=== PATIENT | male | born 1960 | race Asian ===

== ENCOUNTER 2020-02-08 21:41 | Emergency (ER) | payer SELFPAY ==
[~2020-02-08] VITALS: Ht 172.7 cm; Wt 90.7 kg
[2020-02-08 21:54] VITALS: BP 149/83
[2020-02-08 22:22] LABS: Basophils # (auto) 0 10 ^3/uL (0-0.2); Basophils % (auto) 0.6 % (0.0-2.0); Eosinophils # (auto) 0 10 ^3/uL (0-0.8); Eosinophils % (auto) 0.4 % (0.0-7.0); Hematocrit 47.1 % (41.0-53.0); Hemoglobin 16.6 g/dL (13.5-17.5); Lymphocytes # (auto) 1.3 10 ^3/uL (0.4-5.4); Lymphocytes % (auto) 29.9 % (10.0-50.0); Mean Corpuscular Hemoglobin 33.4 pg (28.0-32.0); Mean Corpuscular Hgb Conc. 35.2 g/dL (32.0-36.0); Mean Corpuscular Volume 94.9 fL (80.0-100.0); Monocytes # (auto) 0.7 10 ^3/uL (0-1.3); Monocytes % (auto) 16.1 % (0.0-12.0); Neutrophils # (auto) 2.4 10 ^3/uL (1.6-8.6); Nucleated Red Blood Cells % 0.1 %; Platelet Count (auto) 125 10^3/uL (140-450); Red Blood Cells 4.96 10^6/uL (4.5-5.90); White Blood Cell 4.5 10^3/uL (4.4-10.8)
[2020-02-08 23:07] LABS: Albumin 3.9 g/dL (3.4-5.0); BUN/Creatinine Ratio 13.9; Calcium 8.9 mg/dL (8.5-10.1); Potassium 4.3 mmol/L (3.5-5.1)
[2020-02-08 23:10] LABS: Bilirubin, Total 0.5 mg/dL (0.2-1.0); Total Protein 7.8 g/dL (6.4-8.2)
== END 2020-02-08 22:33 | disposition home or self-care (01) ==
LOC: EEVIPCON 21:44 → ER 21:44
DX: U07.1 COVID-19 (principal); J18.9 Pneumonia, unspecified organism
CPT/HCPCS: 36415; 71045; 80053; 83605; 85025

== ENCOUNTER 2020-02-10 09:34 | Emergency (ER) | payer BC, OTHER ==
[~2020-02-10] VITALS: Ht 172.7 cm; Wt 90.7 kg
[2020-02-10] MEDS ORDERED: cefTRIAXone SOD 1,000 MG VL IM ONE (12:00)
[2020-02-10 12:55] LABS: Basophils # (auto) 0 10 ^3/uL (0-0.2); Basophils % (auto) 0.3 % (0.0-2.0); Eosinophils # (auto) 0 10 ^3/uL (0-0.8); Hematocrit 48.4 % (41.0-53.0); Hemoglobin 16.6 g/dL (13.5-17.5); Lymphocytes # (auto) 1.5 10 ^3/uL (0.4-5.4); Lymphocytes % (auto) 25.6 % (10.0-50.0); Mean Corpuscular Hemoglobin 32.8 pg (28.0-32.0); Mean Corpuscular Hgb Conc. 34.2 g/dL (32.0-36.0); Mean Corpuscular Volume 95.8 fL (80.0-100.0); Monocytes # (auto) 0.5 10 ^3/uL (0-1.3); Monocytes % (auto) 8.8 % (0.0-12.0); Neutrophils # (auto) 3.8 10 ^3/uL (1.6-8.6); Neutrophils % (auto) 65.3 % (37.0-80.0); Nucleated Red Blood Cells % 0.1 %; Platelet Count (auto) 153 10^3/uL (140-450); Red Blood Cells 5.05 10^6/uL (4.5-5.90); Red Cell Distribution Width 12.7 % (11.8-14.3); White Blood Cell 5.9 10^3/uL (4.4-10.8)
[2020-02-10 13:39] LABS: Albumin 3.6 g/dL (3.4-5.0); Calcium 9.1 mg/dL (8.5-10.1)
[2020-02-10 13:42] LABS: Bilirubin, Total 0.4 mg/dL (0.2-1.0); CRP High Sensitivity 0.56 mg/dL (< 0.3)
[2020-02-10 14:17] LABS: BUN/Creatinine Ratio 13.4
[2020-02-10] MEDS ORDERED: ACETAMINOPHEN 325 MG TAB PO ONE (14:30)
[2020-02-10 14:53] VITALS: BP 98/76
== END 2020-02-10 16:09 | disposition home or self-care (01) ==
LOC: ER 09:34
DX: U07.1 COVID-19 (principal)
CPT/HCPCS: 36415; 71045; 80053; 82728; 83615; 85025; 85379; 86141; 96372; 99284; J0696

== ENCOUNTER 2020-02-22 14:57 | Inpatient (IN) | payer BC ==
[~2020-02-22] VITALS: Ht 172.7 cm; Wt 95.2 kg
[2020-02-22] MEDS ORDERED: DexAMETHasone SOD PHOS 10MG/1ML VIAL INJ IV ONE ×2 (15:45→16:15)
[2020-02-22] MEDS ORDERED: cefTRIAXone 1GM/50ML D5W 50 ML IV ONE (15:45)
[2020-02-22 16:13] LABS: Basophils # (auto) 0 10 ^3/uL (0-0.2); Basophils % (auto) 0.4 % (0.0-2.0); Eosinophils # (auto) 0 10 ^3/uL (0-0.8); Eosinophils % (auto) 0.1 % (0.0-7.0); Hematocrit 45.2 % (41.0-53.0); Hemoglobin 15.6 g/dL (13.5-17.5); Lymphocytes # (auto) 1.1 10 ^3/uL (0.4-5.4); Mean Corpuscular Hgb Conc. 34.6 g/dL (32.0-36.0); Mean Corpuscular Volume 95.6 fL (80.0-100.0); Monocytes # (auto) 0.6 10 ^3/uL (0-1.3); Monocytes % (auto) 5.4 % (0.0-12.0); Neutrophils # (auto) 8.6 10 ^3/uL (1.6-8.6); Neutrophils % (auto) 83.1 % (37.0-80.0); Nucleated Red Blood Cells % 0.1 %; Platelet Count (auto) 215 10^3/uL (140-450); Red Blood Cells 4.73 10^6/uL (4.5-5.90); Red Cell Distribution Width 13.5 % (11.8-14.3); White Blood Cell 10.3 10^3/uL (4.4-10.8)
[2020-02-22] MEDS ORDERED: ACETAMINOPHEN 500 MG TAB PO ONE (16:30)
[2020-02-22 16:32] LABS: INR 0.97 (0.9-1.15); Partial Thromboplastin Time 24.8 sec (23.0-31.2)
[2020-02-22 16:37] LABS: Albumin 3.2 g/dL (3.4-5.0); Calcium 8.1 mg/dL (8.5-10.1); Potassium 4.4 mmol/L (3.5-5.1)
[2020-02-22 16:43] LABS: BUN/Creatinine Ratio 26.2; Bilirubin, Total 0.6 mg/dL (0.2-1.0); CRP High Sensitivity 0.19 mg/dL (< 0.3)
[2020-02-22] MEDS ORDERED: DEXTROSE (50%) 50ML SYRG IV PRN (17:15)
[2020-02-22] MEDS ORDERED: MORPHINE SULF INJ 2 MG/ML SYRINGE 1ML IV PRN ×2 (17:15)
[2020-02-22] MEDS ORDERED: LACTULOSE 20Gm/30ML SOLN PO PRN (17:15)
[2020-02-22] MEDS ORDERED: REMDESIVIR PER PHARMACY 0 ML IV SCH (17:15)
[2020-02-22] MEDS ORDERED: TEMAZEPAM 15 MG CAP PO PRN (17:15)
[2020-02-22] MEDS ORDERED: NITROGLYCERIN 0.4 MG SL TAB SL PRN (17:15)
[2020-02-22] MEDS ORDERED: traMADol HCL 50 MG TAB PO PRN (17:15)
[2020-02-22] MEDS ORDERED: PROMETHAZINE HCL 25 MG/ML 1ML IV PRN (17:15)
[2020-02-22] MEDS ORDERED: REMDESIVIR 200 MG in NS 210ml LOADING DOSE ADULT IV ONE (18:30)
[2020-02-22] MEDS ORDERED: ASPirin 81 mg TAB PO ONE (19:15)
[2020-02-22] MEDS ORDERED: NITROGLYCERIN 0.2MG/HR TOPICAL PATCH TD ONE (19:59)
[2020-02-22] MEDS ORDERED: SODIUM CHLORIDE 0.9% 500 ML IV ONE (20:00)
[2020-02-22] MEDS: SODIUM CHLORIDE 0.9% 1,000 ML IV SCH (20:00)
[2020-02-22] MEDS: ATORVASTATIN 20 MG TAB PO SCH (21:58)
[2020-02-22] MEDS: ENOXAPARIN SOD 40 MG/0.4 ML SYRINGE SC SCH (21:58)
[2020-02-22] MEDS: CARVEDILOL 3.125 MG TAB PO SCH (21:58)
[2020-02-22] MEDS: ACCU-CHEK COMFORT CURVE STRIP VI SCH (22:02)
[2020-02-22 22:15] VITALS: BP 122/77
[2020-02-22] MEDS: BUDESONIDE (INHALATION) 180 MCG IH IN SCH (22:51)
[2020-02-22 23:21] VITALS: BP 122/77
[2020-02-23] VITALS: BP 122/77
[2020-02-23] MEDS ORDERED: ACET1CAP14 PO (03:21)
[2020-02-23] MEDS ORDERED: DOXY100C2 PO (03:21)
[2020-02-23] MEDS ORDERED: DEX4T PO (03:21)
[2020-02-23 05:53] LABS: Basophils # (auto) 0 10 ^3/uL (0-0.2); Basophils % (auto) 0.1 % (0.0-2.0); Eosinophils # (auto) 0 10 ^3/uL (0-0.8); Hematocrit 41.1 % (41.0-53.0); Hemoglobin 14.1 g/dL (13.5-17.5); Lymphocytes # (auto) 1.3 10 ^3/uL (0.4-5.4); Lymphocytes % (auto) 13.5 % (10.0-50.0); Mean Corpuscular Hemoglobin 33.6 pg (28.0-32.0); Mean Corpuscular Hgb Conc. 34.3 g/dL (32.0-36.0); Monocytes # (auto) 0.6 10 ^3/uL (0-1.3); Monocytes % (auto) 6.3 % (0.0-12.0); Neutrophils % (auto) 80.1 % (37.0-80.0); Platelet Count (auto) 182 10^3/uL (140-450); Red Cell Distribution Width 13.4 % (11.8-14.3); White Blood Cell 9.9 10^3/uL (4.4-10.8)
[2020-02-23] MEDS: SODIUM CHLORIDE 0.9% 1,000 ML IV SCH (06:00)
[2020-02-23 06:04] LABS: Potassium 4.1 mmol/L (3.5-5.1)
[2020-02-23 06:29] LABS: Albumin 2.9 g/dL (3.4-5.0); BUN/Creatinine Ratio 33.8; Bilirubin, Total 0.4 mg/dL (0.2-1.0); Calcium 8.1 mg/dL (8.5-10.1); Total Protein 6.3 g/dL (6.4-8.2)
[2020-02-23] MEDS: ACCU-CHEK COMFORT CURVE STRIP VI SCH ×4 (06:38→20:20)
[2020-02-23 06:42] LABS: Urine WBC None Seen /hpf (0 - 3)
[2020-02-23 06:51] LABS: Urine Bacteria NONE SEEN /hpf (None Seen); Urine Blood Negative /uL (Negative); Urine Specific Gravity 1.008 (1.001-1.035)
[2020-02-23 08:00] VITALS: BP 127/72
[2020-02-23] MEDS ORDERED: diphenhdrAMINE HCL 50 MG/1 ML VL IV PRN (09:30)
[2020-02-23] MEDS: CHOLECALCIFEROL (VITD3) 2,000 UNIT CAP PO SCH (09:51)
[2020-02-23] MEDS: ZINC SULFATE 220mg CAP or TAB PO SCH (09:52)
[2020-02-23] MEDS: ASCORBIC ACID 1,000 MG TAB PO SCH (09:52)
[2020-02-23] MEDS: ASPirin 81 mg TAB PO SCH (09:52)
[2020-02-23] MEDS: DexAMETHasone SOD PHOS 10MG/1ML VIAL INJ IV SCH (09:53)
[2020-02-23] MEDS: ENOXAPARIN SOD 40 MG/0.4 ML SYRINGE SC SCH ×2 (09:53→20:20)
[2020-02-23] MEDS: ENALAPRIL MALEATE 2.5 MG TAB PO SCH ×2 (09:54→10:00)
[2020-02-23] MEDS: NITROGLYCERIN 0.2MG/HR TOPICAL PATCH TD SCH ×2 (09:55→10:00)
[2020-02-23] MEDS: levoFLOXacin 500MG 100 ML IV SCH (09:57)
[2020-02-23] MEDS: CARVEDILOL 3.125 MG TAB PO SCH (10:00)
[2020-02-23] MEDS ORDERED: IVERMECTIN 3 MG TAB PO ONE (10:00)
[2020-02-23] MEDS: BUDESONIDE (INHALATION) 180 MCG IH IN SCH ×2 (10:00→18:42)
[2020-02-23] MEDS ORDERED: ASPirin 81 mg TAB PO SCH (10:00)
[2020-02-23] MEDS: REMDESIVIR 100mg 100 MG in SODIUM CHL 0.9% 230 ML IV SCH (14:45)
[2020-02-23 16:00] VITALS: BP 113/54
[2020-02-23] MEDS: ALBUTEROL SULF HFA 90MCG INH 200DOSE IN PRN (18:42)
[2020-02-23] MEDS: ATORVASTATIN 20 MG TAB PO SCH (20:20)
[2020-02-23 22:30] VITALS: BP 115/74
[2020-02-23 23:02] VITALS: BP 104/67
[2020-02-24] VITALS: BP 105/71
[2020-02-24 00:15] VITALS: BP 97/62
[2020-02-24 06:03] LABS: Basophils # (auto) 0 10 ^3/uL (0-0.2); Basophils % (auto) 0.1 % (0.0-2.0); Eosinophils # (auto) 0 10 ^3/uL (0-0.8); Eosinophils % (auto) 0.1 % (0.0-7.0); Hematocrit 42.7 % (41.0-53.0); Hemoglobin 14.5 g/dL (13.5-17.5); Lymphocytes # (auto) 1.6 10 ^3/uL (0.4-5.4); Lymphocytes % (auto) 18.1 % (10.0-50.0); Mean Corpuscular Hemoglobin 32.9 pg (28.0-32.0); Mean Corpuscular Hgb Conc. 33.9 g/dL (32.0-36.0); Monocytes # (auto) 0.6 10 ^3/uL (0-1.3); Monocytes % (auto) 7.2 % (0.0-12.0); Neutrophils # (auto) 6.4 10 ^3/uL (1.6-8.6); Neutrophils % (auto) 74.5 % (37.0-80.0); Platelet Count (auto) 164 10^3/uL (140-450); Red Cell Distribution Width 13.6 % (11.8-14.3); White Blood Cell 8.6 10^3/uL (4.4-10.8)
[2020-02-24] MEDS: ACCU-CHEK COMFORT CURVE STRIP VI SCH ×3 (06:19→17:00)
[2020-02-24 06:23] LABS: Albumin 2.9 g/dL (3.4-5.0); Calcium 8.1 mg/dL (8.5-10.1); Potassium 3.7 mmol/L (3.5-5.1)
[2020-02-24 06:26] LABS: BUN/Creatinine Ratio 25.6; Bilirubin, Total 0.6 mg/dL (0.2-1.0); Total Protein 6.3 g/dL (6.4-8.2)
[2020-02-24] MEDS: BUDESONIDE (INHALATION) 180 MCG IH IN SCH ×2 (06:43→19:23)
[2020-02-24] MEDS: ALBUTEROL SULF HFA 90MCG INH 200DOSE IN PRN ×2 (06:43→19:23)
[2020-02-24 08:00] VITALS: BP 120/74
[2020-02-24] MEDS: levoFLOXacin 500MG 100 ML IV SCH (08:56)
[2020-02-24] MEDS: ASPirin 81 mg TAB PO SCH (08:56)
[2020-02-24] MEDS: ZINC SULFATE 220mg CAP or TAB PO SCH (08:56)
[2020-02-24] MEDS: DexAMETHasone SOD PHOS 10MG/1ML VIAL INJ IV SCH (08:56)
[2020-02-24] MEDS: CHOLECALCIFEROL (VITD3) 2,000 UNIT CAP PO SCH (08:57)
[2020-02-24] MEDS: ASCORBIC ACID 1,000 MG TAB PO SCH (08:57)
[2020-02-24] MEDS: ENOXAPARIN SOD 40 MG/0.4 ML SYRINGE SC SCH (08:57)
[2020-02-24] MEDS: NITROGLYCERIN 0.2MG/HR TOPICAL PATCH TD SCH (10:00)
[2020-02-24] MEDS ORDERED: ASCO10003 PO ×2 (12:52)
[2020-02-24] MEDS ORDERED: BUDE2SUS3 IN ×2 (12:52)
[2020-02-24] MEDS ORDERED: DEX4T PO ×2 (12:52)
[2020-02-24] MEDS ORDERED: ALBUAER3 IN ×2 (12:52)
[2020-02-24] MEDS ORDERED: DOXY-286 PO ×2 (12:52)
[2020-02-24] MEDS ORDERED: FAMO20TA10 PO ×2 (12:52)
[2020-02-24] MEDS ORDERED: CHOL1CAP47 PO ×2 (12:52)
[2020-02-24] MEDS ORDERED: ZINC220T6 PO ×2 (12:52)
[2020-02-24] MEDS ORDERED: ASPI-378 PO ×2 (12:52)
[2020-02-24] MEDS: REMDESIVIR 100mg 100 MG in SODIUM CHL 0.9% 230 ML IV SCH (15:21)
[2020-02-24 16:26] VITALS: BP 115/68
[2020-02-24] MEDS: ACETAMINOPHEN 500 MG TAB PO PRN ×2 (17:16→18:29)
[2020-02-24] MEDS ORDERED: cefTRIAXone 1GM/50ML D5W 50 ML IV ONE (18:00)
[2020-02-24] MEDS ORDERED: SODIUM CHLORIDE 0.9% 500 ML IV ONE (18:00)
== END 2020-02-24 20:00 | disposition home or self-care (01) | DRG 871 ==
LOC: ER 14:57 → EEVIPCON 14:57 → TELE 17:14 → TELE-WESTW 22:12
PROVIDERS: ADMIT Internal Medicine; ATTEND Internal Medicine
PROC: XW033E5 Introduction of Remdesivir Anti-infective into Peripheral Vein, Percutaneous Approach, New Technology Group 5 (ICD-10-PCS; principal; 2020-02-22)
PROC: XW13325 Transfusion of Convalescent Plasma (Nonautologous) into Peripheral Vein, Percutaneous Approach, New Technology Group 5 (ICD-10-PCS; 2020-02-23)
DX: A41.89 Other specified sepsis (principal); I21.A1 Myocardial infarction type 2; J12.82 Pneumonia due to coronavirus disease 2019; U07.1 COVID-19; J96.01 Acute respiratory failure with hypoxia; D84.9 Immunodeficiency, unspecified; E44.1 Mild protein-calorie malnutrition; E66.01 Morbid (severe) obesity due to excess calories; J45.909 Unspecified asthma, uncomplicated; R73.9 Hyperglycemia, unspecified; Z68.31 Body mass index [BMI] 31.0-31.9, adult; Z88.2 Allergy status to sulfonamides
CPT/HCPCS: 36415; 71045; 80053; 80061; 81001; 82550; 82728; 82962; 83036; 83615; 83880; 84443; 84484; 85025; 85379; 85610; 85652; 85730; 86141; 86850; 86900; 86901; 87426; 93306; 94640; 96365; 96367; 96375; G0378; J0696; J1100; J1956

== ENCOUNTER → 2020-02-22 | Outpatient (CLI) | payer BC ==
[~2020-02-22] MED LIST: ACET1CAP14 PO; ALBUAER3 IN; ASCO10003 PO; ASPI-378 PO; BUDE2SUS3 IN; CHOL1CAP47 PO; DEX4T PO; DOXY-286 PO; DOXY100C2 PO; FAMO20TA10 PO; ZINC220T6 PO
== END | disposition home or self-care (01) ==
LOC: ER 10:25
PROVIDERS: ATTEND Student in an Organized Health Care Education/Training Program
DX: I51.7 Cardiomegaly (principal); I27.21 Secondary pulmonary arterial hypertension; R59.0 Localized enlarged lymph nodes; U07.1 COVID-19
CPT/HCPCS: 71250

== ENCOUNTER 2020-02-25 09:41 | Outpatient (CLI) | payer BC ==
[2020-02-25] VITALS (7 sets, daily range): BP systolic 112–130; BP diastolic 72–92
[~2020-02-25] VITALS: Ht 30.5 cm; Wt 0.5 kg
[2020-02-25] MEDS ORDERED: REMDESIVIR 100mg 100 MG in SODIUM CHL 0.9% 230 ML IV SCH (10:00)
== END 2020-02-25 11:53 | disposition home or self-care (01) ==
LOC: ER 09:41
PROVIDERS: ATTEND Internal Medicine
DX: U07.1 COVID-19 (principal); J18.9 Pneumonia, unspecified organism; J45.909 Unspecified asthma, uncomplicated; E66.01 Morbid (severe) obesity due to excess calories; Z68.31 Body mass index [BMI] 31.0-31.9, adult

== ENCOUNTER 2020-02-26 09:08 | Outpatient (CLI) | payer BC ==
[~2020-02-26] VITALS: Ht 30.5 cm; Wt 0.5 kg
[2020-02-26 09:15] VITALS: BP 115/71
[2020-02-26] MEDS ORDERED: REMDESIVIR 100mg 100 MG in SODIUM CHL 0.9% 230 ML IV ONE (09:30)
[2020-02-26 10:05] VITALS: BP 107/67
[2020-02-26 10:35] VITALS: BP 107/67
[2020-02-26 11:00] VITALS: BP 109/71
== END 2020-02-26 11:00 | disposition home or self-care (01) ==
LOC: ER 09:08
PROVIDERS: ATTEND Internal Medicine
DX: U07.1 COVID-19 (principal); J18.9 Pneumonia, unspecified organism; I25.2 Old myocardial infarction; I27.21 Secondary pulmonary arterial hypertension; J45.909 Unspecified asthma, uncomplicated; E44.1 Mild protein-calorie malnutrition

== ENCOUNTER → 2020-07-22 | Emergency (ER) | payer SELFPAY ==
[~2020-07-22] VITALS: Ht 172.7 cm; Wt 90.7 kg
[~2020-07-22] MED LIST changes: +GLYCERIN ADULT RECTAL SUPP PR ONE
[2020-07-22 19:55] VITALS: BP 142/88
== END | disposition home or self-care (01) ==
LOC: ER 19:57 → EEVIPCON 19:57
DX: K59.00 Constipation, unspecified (principal); J45.909 Unspecified asthma, uncomplicated; Z88.2 Allergy status to sulfonamides